=== PATIENT | female | born 1940 | race Caucasian/White ===

== ENCOUNTER → 2025-01-02 14:33 | Outpatient (CLI) | payer MEDICARE, OTHER, SELFPAY ==
[2025-01-02 19:15] LABS: HEMOLYSIS 19 (0-50); Iron 117 ug/dL (37-170)
[2025-01-02 19:33] LABS: Percent Iron Saturation 54 % (15-50); Total Iron Binding Capacity 216 ug/dL (265-497); Transferrin 190 mg/dL (206-381)
[2025-01-02 19:42] LABS: Add Manual Diff / Slide Review NO; Basophils Absolute Auto 0 /uL (0-100); Basophils Percent Auto 0.5 % (0-2); Eosinophils Absolute Auto 100 /uL (0-450); Eosinophils Percent Auto 1.5 % (2-4); Hematocrit 45.8 % (36-46); Hemoglobin 15.1 g/dL (12.0-16.0); Lymphocytes Absolute Auto 1100 /uL (1100-4500); Lymphocytes Percent Auto 26.4 % (25-40); Mean Corpuscular HGB Conc 33.1 % (30-36); Mean Corpuscular Hemoglobin 30.3 PG (26-34); Mean Corpuscular Volume 91.8 fL (80-100); Monocytes Absolute Auto 200 /uL (0-900); Monocytes Percent Auto 6.1 % (3-14); Neutrophils Absolute Auto 2700 /uL (1500-7000); Neutrophils Percent Auto 65.5 % (50-75); Platelet Count 196 X10^3/uL (150-400); Red Blood Cell Count 4.99 X10^6/uL (4.0-5.2); Red Cell Distribution Width 23.7 % (11.6-14.8); White Blood Cell Count 4.1 X10^3/uL (4.5-11.0)
[2025-01-02 19:46] LABS: Ferritin 84 ng/mL (11-264)
[2025-01-02 20:31] LABS: Anisocytosis 3+
[2025-01-02 20:32] LABS: Macrocytosis 1+
== END ==
PROVIDERS: PCP Physician Assistant
DX: D50.8 Other iron deficiency anemias (principal)
CPT/HCPCS: 82728; 83540; 83550; 85025